=== PATIENT | female | born 1965 | race Hispanic/Latino ===

== ENCOUNTER 2024-07-10 09:04 | Day surgery (SDC) | payer OTHER ==
[~2024-07-10] VITALS: Ht 152.4 cm; Wt 65.8 kg
[~2024-07-10 09:04] MED LIST: ACCUPRIL5 MG PO; AMLODIPINE BESYL5 MG PO; ASPIRIN81 MG PO; ATENOLOL50 MG PO; ATORVASTATIN CA10 MG PO; CARAFATE1 GM PO; CRESTOR5 MG PO; HYZAAR1 TA2 PO; IRON325 M1 PO; LOPRESSOR25 M1 PO; LOVASTATIN40 M1 PO; METFORMIN500 MG PO; PROTONIX40 M2 PO; SMZ-TMP1 M1 PO; ULTRAM50 M1 PO; XANAX0.5 MG PO
[2024-07-10] MEDS ORDERED: SODIUM CHLORIDE 0.9% 1,000 ML IV ONE (09:27)
[2024-07-10] MEDS ORDERED: FAMOTIDINE 10MG/ML 2ML SDV IV ONE (09:27)
[2024-07-10] MEDS ORDERED: ATENOLOL50 MG PO (09:42)
[2024-07-10 11:18] VITALS: BP 131/56
[2024-07-10] MEDS ORDERED: GLYCOPYRROLATE 0.2 MG/ML IV ONE (14:56)
[2024-07-10] MEDS ORDERED: LIDOCAINE HCL 2% 2ML SDV IV ONE (14:56)
[2024-07-10] MEDS ORDERED: PROPOFOL 500 MG/50 ML VIAL IV ONE (14:56)
== END 2024-07-10 11:39 | disposition home or self-care (01) | DRG 392 ==
LOC: ENDO 09:04 → ORM 11:45 → ENDO 12:10 → ORM 13:20 → ENDO 13:20 → ORM 14:15
PROVIDERS: ATTEND Internal Medicine Gastroenterology
PROC: 0DB48ZX Excision of Esophagogastric Junction, Via Natural or Artificial Opening Endoscopic, Diagnostic (ICD-10-PCS; principal; 2024-07-10)
PROC: 0DB78ZX Excision of Stomach, Pylorus, Via Natural or Artificial Opening Endoscopic, Diagnostic (ICD-10-PCS; 2024-07-10)
DX: K21.9 Gastro-esophageal reflux disease without esophagitis (principal); K31.9 Disease of stomach and duodenum, unspecified; K44.9 Diaphragmatic hernia without obstruction or gangrene; I10 Essential (primary) hypertension; I34.0 Nonrheumatic mitral (valve) insufficiency; Z86.19 Personal history of other infectious and parasitic diseases